=== PATIENT | female | born 1960 | race Caucasian/White ===

== ENCOUNTER 2018-01-15 00:57 | Emergency (ER) | payer MEDICARE, MEDICAID ==
[~2018-01-15] VITALS: Ht 175.3 cm; Wt 86.2 kg
[2018-01-15] MEDS ORDERED: NORTRIPTYLINE H75 MG PO (01:17)
[2018-01-15] MEDS ORDERED: ZOLOFT25 MG PO (01:18)
== END 2018-01-15 02:36 | disposition home or self-care (01) ==
LOC: ED 00:57
DX: S93.401A Sprain of unspecified ligament of right ankle, initial encounter (principal); W22.8XXA Striking against or struck by other objects, initial encounter; F17.200 Nicotine dependence, unspecified, uncomplicated; Z88.6 Allergy status to analgesic agent; Z79.899 Other long term (current) drug therapy
CPT/HCPCS: 73610; 99283